=== PATIENT | female | born 1965 | race Caucasian/White ===

== ENCOUNTER 2023-06-05 14:50 | Emergency (ER) | payer SELFPAY ==
[2023-06-05 15:18] VITALS: BP 135/69; PULSE 64; RESP 14; TEMP 36.7; O2SAT 98; BMI 44.2
--- NOTE | 2023-06-05 19:28 | CTR_ITS ---
PROCEDURE INFORMATION: Exam: CT Head Without Contrast Exam date and time: 06/05/2023 8:01 PM Age: 57 years old Clinical indication: Pain; Dizziness; Headache TECHNIQUE: Imaging protocol: Computed tomography of the head without contrast. Radiation optimization: All CT scans at this facility use at least one of these dose optimization techniques: automated exposure control; mA and/or kV adjustment per patient size (includes targeted exams where dose is matched to clinical indication); or iterative reconstruction. REPORTING DATA: Count of CT and Cardiac NM exams in prior 12 months: This patient has received 0 known CTs and 0 known cardiac nuclear medicine studies in the 12 months prior to the current study. COMPARISON: No relevant prior studies available. RADIATION DOSE METRICS: Total DLP (mGy-cm): 1054.48 FINDINGS: Brain: No hemorrhage. No edema. Mild diffuse cerebral atrophy and sequela of chronic small vessel ischemic disease. Old lacunar infarct noted in the right basal ganglia. No mass effect. Cerebral ventricles: No ventriculomegaly. Paranasal sinuses: Visualized sinuses are unremarkable. No fluid levels. Mastoid air cells: Visualized mastoid air cells are well aerated. Bones/joints: Unremarkable. No acute fracture. Soft tissues: Unremarkable. CT/CT head wo con* [id number] IMPRESSION: No acute intracranial abnormality.
--- NOTE | 2023-06-05 19:51 | W.ED.DIZZY ---
HPI - Dizziness General: Chief Complaint: Dizziness Stated Complaint: DIZZY SPELLS Time Seen by Provider: 06/05/23 19:27 History of Present Illness: HPI Narrative: 57-year-old female comes in today with complaints of dizzy spells that has started in the last 2 weeks. Patient reports different movements such as rolling over in bed or standing up from sitting will exacerbate the symptoms. Patient reports no headache or fever. Patient has a history of COVID which caused significant illness about 2 years ago. Patient denies diabetes but reports hypertension and high cholesterol. Patient reports no change in hearing. Associated symptoms: Denies change in hearing, chest pain, chills, headache(s), nausea or vomiting Review of Systems General: Reports: 10 or more systems reviewed and unremarkable except in HPI and below Const: Denies: fever(s) or chills Eyes: Denies: change in vision ENMT: Denies: change in hearing or nasal discharge Card: Denies: chest pain Resp: Denies: dyspnea GI: Denies: nausea or vomiting : Denies: difficulty voiding Musc: Denies: neck pain or back pain Skin/Breast: Denies: rash Neuro: Denies: headache(s) Psych: Denies: depression Marcos/Lymph: Denies: easy bruising or easy bleeding Physical Exam Const: COMMON NORMALS: patient oriented x3 HENMT: COMMON NORMALS: normocephalic and TM's normal bilaterally HEAD & SCALP: normocephalic NOSE: Normal nares present TYMPANIC MEMBRANE: TM's normal bilaterally THROAT: posterior oropharynx normal Neck/C-Spine: COMMON NORMALS: no meningeal signs Resp: COMMON NORMALS: normal respiratory effort and clear to auscultation bilaterally AUSCULTATION: clear to auscultation bilaterally Cardio: COMMON NORMALS: regular rate and regular rhythm RATE: regular rate RHYTHM: regular rhythm GI: COMMON NORMALS: Soft to palpation and non-tender PALPATION: Yes Soft to palpation Extremity: COMMON NORMALS: normal to inspection and full ROM Neuro: COMMON NORMALS: patient oriented x3 MENINGEAL SIGNS: Yes no meningeal signs Skin: COMMON NORMALS: turgor normal GENERAL SKIN EXAM: turgor normal Course Vital Signs: Vital signs: Vital Signs Temperature 98.0 F 06/05/23 15:18 Pulse Rate 58 L 06/05/23 20:30 Respiratory Rate 14 06/05/23 15:18 Blood Pressure 130/81 06/05/23 20:30 Pulse Oximetry 98 06/05/23 15:18 Oxygen Delivery Me thod Room Air 06/05/23 15:18 MDM - Dizziness Medical Decision Making 57-year-old female comes in today for complaints of dizziness increasing over the last 2 weeks. Patient denies any symptoms of illness. Patient appears nontoxic. Bilateral TMs are clear. Posterior pharynx is pink and moist. Lungs are clear to auscultation. Heart rates regular without any adventitious sounds. Abdomen soft nontender. Skin is warm and dry. No edema is noted in the extremities. No meningeal signs. Differential diagnosis includes atherosclerosis, hypertension, anxiety, BPV, vestibular neuritis, adverse drug effect. CT of the head noted no acute intercranial abnormality but the old infarct was noted. Head/neck CTA showed no large vessel stenosis or occlusion. CBC noted some mild decrease in white blood cells, and platelets in the 140s. CMP noted a creatinine of 1.0 and mild renal insufficiency, and some mild elevation in liver enzymes. Patient may have a viral syndrome which is causing a decline in her white blood cells, platelets, and a bump in her liver enzymes and may be the reasoning behind her dizziness. Patient describes positional vertigo with changes in position that aggravate the symptoms. I recommended follow-up with neurology due to the abnormality noted on the CT scan and patient's dizziness. Patient reported understanding and agreed to plan. Recommended meclizine for the dizziness as needed. I also refilled patient's atorvastatin per her request. Recommend follow-up with primary care otherwise for repeat labs and evaluation of abnormalities on labs. Lab Data 06/05/23 19:35 06/05/23 19:[address] 06/05/23 19:28 IMPRESSION: No acute intracranial abnormality. Head/Neck CTA 06/05/23 20:16 IMPRESSION: No large vessel stenosis or occlusion. IMPRESSION: No stenosis or occlusion. REFERENCES: NASCET CRITERIA. The degree of stenosis in the cervical segment of the internal carotid artery is based on NASCET criteria. Normal is no stenosis. Mild is less than 50% stenosis. Moderate is 50-69% stenosis. Severe is 70% to 99% stenosis. Total occlusion is no detectable patent lumen. Laboratory Results WBC 3.22 10^3/uL (3.29-11.43) L 06/05/23 19:35 RBC 3.65 10^6/uL (3.85-5.65) L 06/05/23 19:35 Hgb 13.70 g/dL (11.27-16.99) 06/05/23 19:35 Hct 41.1 % (36-47) 06/05/23 19: MCV 112.6 fl (85-98) H 06/05/23 19:35 MCH 37.5 pg (27-33) H 06/05/23 19:35 MCHC 33.3 g/dL (30-55) 06/05/23 19:35 RDW 13.2 % (12.1-15.1) 06/05/23 19:35 Plt Count 142 10^3/cmm (157-399) L 06/05/23 19:35 MPV 8.9 fL (7.4-10.4) 06/05/23 19:35 Neut % (Auto) 51.3 % 06/05/23 19:35 Lymph % (Auto) 34.8 % 06/05/23 19:35 Stevens % (Auto) 9.6 % 06/05/23 19:35 Eos % (Auto) 3.7 % 06/05/23 19:35 Baso % (Auto) 0.3 % 06/05/23 19:35 Neut # (Auto) 1.65 10^3/uL (1.8-7.7) L 06/05/23 19:35 Lymph # (Auto) 1.1 10^3/uL (0.8-4.8) 06/05/23 19:35 Stevens # (Auto) 0.3 10^3/uL (0.2-0.9) 06/05/23 19:35 Eos # (Auto) 0.1 10^3/uL (0.0-0.8) 06/05/23 19:35 Baso # (Auto) 0.0 10^3/uL (0.0-0.1) 06/05/23 19:35 Nucleated RBC % (auto) 0 % 06/05/23 19:35 Nucleated RBCs # 0.0 /100WBC 06/05/23 19:35 Sodium 139 mmol/L (136-145) 06/05/23 19:35 Potassium 4.3 mmol/L (3.5-5.1) 06/05/23 19:35 Chloride 101 mmol/L (98-107) 06/05/23 19:35 Carbon Dioxide 26 mmol/L (22-29) 06/05/23 19:35 Anion Gap 16.3 (5-19) 06/05/23 19:35 BUN 24 mg/dL (6-20) H 06/05/23 19:35 Creatinine 1.0 mg/dL (0.5-0.9) H 06/05/23 19:35 GFR Calculation 57.1 mL/min (90-130) L 06/05/23 19:35 Glucose 86 mg/dL (65-115) 06/05/23 19:35 Calculated Osmolality 291 mOsm/kg (285-295) 06/05/23 19:35 Calcium 9.2 mg/dL (8.5-10.5) 06/05/23 19:35 Total Bilirubin 0.8 mg/dL (0.15-1.2) 06/05/23 19:35 AST 75 U/L (0-32) H 06/05/23 19:35 ALT 55 U/L (0-33) H 06/05/23 19:35 Alkaline Phosphatase 114 U/L (35-105) H 06/05/23 19:35 Total Protein 6.5 g/dL (6.6-8.7) L 06/05/23 19:35 Albumin 4.2 g/dL (3.5-5.2) 06/05/23 19:35 Globulin 2.3 g/dL (1.3-4.6) 06/05/23 19:35 Discharge Plan Discharge Patient Disposition: Home Clinical Impression: History of idiopathic cerebral venous infarction Benign paroxysmal positional vertigo Qualifiers: Laterality: unspecified laterality Qualified Code(s): H81.10 - Benign paroxysmal vertigo, unspecified ear Condition: Stable Prescriptions: New meclizine 25 mg tablet 25 mg PO TID PRN (Reason: dizziness) Qty: 30 0RF atorvastatin 40 mg tablet 40 mg PO DAILY Qty: 30 3RF Discharge Orders: Discharge ED (Routine); Ordered 06/05/23 Ordered By: Jose Guadalupe Jenkins Referrals: Mary Kate Dolan DO [Primary Care Provider] - Discharge Diet: Usual diet Discharge Activity: Increase activity as tolerated Patient Instructions: Benign Paroxysmal Positional Vertigo (ED) Activity Restrictions/Additional Instructions: Continue with routine care. Drink plenty of water and fluids. Follow-up with primary care for repeat labs and evaluation. credit portfolio manager will contact you regarding follow-up appointment with neurologist for further evaluation and treatment of abnormal CT scan. Return to ER for worsening symptoms such as severe headache, difficulty with speech or mobility, persistent nausea and vomiting, high fever greater than 100.4, or new concerns. Coding Level of Care Code ED Midwife Practitioner for Jeannette Stein
[2023-06-05 19:54] LABS: Basophils % 0.3 %; Eosinophils # 0.1 10^3/uL (0.0-0.8); Eosinophils % 3.7 %; Hematocrit 41.1 % (36-47); Lymphocytes # 1.1 10^3/uL (0.8-4.8); Lymphocytes % 34.8 %; Mean Corpuscular HGB Conc 33.3 g/dL (30-55); Mean Corpuscular Hemoglobin 37.5 pg (27-33); Mean Corpuscular Volume 112.6 fl (85-98); Mean Platelet Volume 8.9 fL (7.4-10.4); Monocytes # 0.3 10^3/uL (0.2-0.9); Monocytes % 9.6 %; Neutrophils # 1.65 10^3/uL (1.8-7.7); Neutrophils % 51.3 %; Nucleated Red Blood Cells % 0 %; Platelet Count 142 10^3/cmm (157-399); Red Blood Count 3.65 10^6/uL (3.85-5.65); Red Cell Distribution Width 13.2 % (12.1-15.1); White Blood Count 3.22 10^3/uL (3.29-11.43)
[2023-06-05 20:05] LABS: Alanine Aminotransferase 55 U/L (0-33); Albumin Level 4.2 g/dL (3.5-5.2); Alkaline Phosphatase 114 U/L (35-105); Anion Gap 16.3 (5-19); Aspartate Amino Transferase 75 U/L (0-32); Blood Urea Nitrogen 24 mg/dL (6-20); Calcium 9.2 mg/dL (8.5-10.5); Carbon Dioxide 26 mmol/L (22-29); Chloride 101 mmol/L (98-107); Globulin 2.3 g/dL (1.3-4.6); Glomerular Filtration Rate 57.1 mL/min (90-130); Glucose 86 mg/dL (65-115); Osmolality Calculated 291 mOsm/kg (285-295); Potassium 4.3 mmol/L (3.5-5.1); Sodium 139 mmol/L (136-145); Total Bilirubin 0.8 mg/dL (0.15-1.2); Total Protein 6.5 g/dL (6.6-8.7)
--- NOTE | 2023-06-05 20:16 | CTR_ITS ---
PROCEDURE INFORMATION: Exam: CTA Head With Contrast, Arteriography Exam date and time: 06/05/2023 8:45 PM Age: 57 years old Clinical indication: Pain; Dizziness and giddiness; Headache; Patient HX: SCHAEFFER with persistent dizziness TECHNIQUE: Imaging protocol: Computed tomographic angiography of the head with contrast. Exam focused on the arteries. 3D rendering (Not supervised by radiologist): MIP and/or 3D reconstructed images were created by the technologist. Radiation optimization: All CT scans at this facility use at least one of these dose optimization techniques: automated exposure control; mA and/or kV adjustment per patient size (includes targeted exams where dose is matched to clinical indication); or iterative reconstruction. Contrast material: OMNI 350; Contrast volume: 100 ml; Contrast route: INTRAVENOUS (IV); REPORTING DATA: Count of CT and Cardiac NM exams in prior 12 months: This patient has received 0 known CTs and 0 known cardiac nuclear medicine studies in the 12 months prior to the current study. COMPARISON: CT head wo con* [id number] 06/05/2023 8:01 PM RADIATION DOSE METRICS: Total DLP (mGy-cm): 519.82 FINDINGS: ANTERIOR CIRCULATION: Right internal carotid artery: Intracranial segment is patent with no significant stenosis. No aneurysm. Right middle cerebral artery: No occlusion or significant stenosis. No aneurysm. Right anterior cerebral artery: No occlusion or significant stenosis. No aneurysm. Left internal carotid artery: Intracranial segment is patent with no significant stenosis. No aneurysm. Left middle cerebral artery: No occlusion or significant stenosis. No aneurysm. Left anterior cerebral artery: No occlusion or significant stenosis. No aneurysm. POSTERIOR CIRCULATION: Right vertebral artery: No occlusion or significant stenosis. No aneurysm. Left vertebral artery: No occlusion or significant stenosis. No aneurysm. Basilar artery: No occlusion or significant stenosis. No aneurysm. Right posterior cerebral artery: No occlusion or significant stenosis. No aneurysm. Left posterior cerebral artery: No occlusion or significant stenosis. No aneurysm. Brain: No definite mass, mass effect, or midline shift. Cerebral ventricles: No ventriculomegaly. Bones/joints: Unremarkable. No acute fracture. Soft tissues: Unremarkable. PROCEDURE INFORMATION: Exam: CTA Neck With Contrast Exam date and time: 06/05/2023 8:45 PM Age: 57 years old Clinical indication: Pain; Dizziness and giddiness; Headache; Patient HX: SCHAEFFER with persistent dizziness TECHNIQUE: Imaging protocol: Computed tomographic angiography of the neck with contrast. 3D rendering (Not supervised by radiologist): MIP and/or 3D reconstructed images were created by the technologist. Radiation optimization: All CT scans at this facility use at least one of these dose optimization techniques: automated exposure control; mA and/or kV adjustment per patient size (includes targeted exams where dose is matched to clinical indication); or iterative reconstruction. Contrast material: OMNI 350; Contrast volume: 100 ml; Contrast route: INTRAVENOUS (IV); REPORTING DATA: Count of CT and Cardiac NM exams in prior 12 months: This patient has received 0 known CTs and 0 known cardiac nuclear medicine studies in the 12 months prior to the current study. COMPARISON: CT head wo con* [id number] 06/05/2023 8:01 PM RADIATION DOSE METRICS: Total DLP (mGy-cm): 519.82 FINDINGS: Right common carotid artery: No stenosis. No dissection or occlusion. Right internal carotid artery: No stenosis of the extracranial segment. No dissection or occlusion. Right external carotid artery: No occlusion or stenosis of the origin. Left common carotid artery: No stenosis. No dissection or occlusion. Left internal carotid artery: No stenosis of the extracranial segment. No dissection or occlusion. Left external carotid artery: No occlusion or stenosis of the origin. Right vertebral artery: No stenosis. No dissection or occlusion. Left vertebral artery: No stenosis. No dissection or occlusion. Soft tissues: Normal. No significant soft tissue swelling. Bones/joints: No acute fracture. CT/CT angio headneck* [id number] IMPRESSION: No large vessel stenosis or occlusion. IMPRESSION: No stenosis or occlusion. REFERENCES: NASCET CRITERIA. The degree of stenosis in the cervical segment of the internal carotid artery is based on NASCET criteria. Normal is no stenosis. Mild is less than 50% stenosis. Moderate is 50-69% stenosis. Severe is 70% to 99% stenosis. Total occlusion is no detectable patent lumen.
[2023-06-05 20:30] VITALS: BP 128/87; BP 130/81; BP 135/97; PULSE 58; PULSE 65; PULSE 70
[2023-06-05] MEDS: iohexol 350 mg/mL 500 mL Btl (per mL) IV (20:42)
--- NOTE | 2023-06-06 08:53 | DCPLANNER ---
Addendum entered by Elizabeth Boyle 06/16/23 09:53: Patient has a follow up appointment scheduled for Monday, July 10, 2023 at 1:[address] Caicedo at neurology. Original Note: janitorial manager had message to schedule a follow up appointment for patient with neurology. janitorial manager sent patients information to the front office staff at neurology. Patients information will be printed and reviewed. Clinic will call patient with appointment information.
== END 2023-06-05 21:46 | disposition home or self-care (01) ==
PROVIDERS: Emergency Provider Nurse Practitioner Family; PCP Family Medicine
DX: H81.10 Benign paroxysmal vertigo, unspecified ear (principal); I10 Essential (primary) hypertension; Z86.73 Personal history of transient ischemic attack (TIA), and cerebral infarction without residual deficits
CPT/HCPCS: 70450; 70496; 70498; 80053; 85025; 99285; Q9967